=== PATIENT | female | born 1940 | race Caucasian/White ===

== ENCOUNTER 2017-03-24 08:52 | Observation (INO) ==
--- NOTE | 2017-03-24 09:15 | Emergency Department Note ---
Disposition Clinical Impression: SOB (shortness of breath) on exertion, Elevated brain natriuretic peptide (BNP ) level Atrial flutter Qualifiers: Atrial flutter type: typical Qualified Code(s): I48.3 - Typical atrial flutter Disposition: Admitted As Inpatient Condition: Fair Time of Disposition: 10:32 SOB HPI - General Chief Complaint: ED Shortness of Breath/Dyspnea Stated Complaint: LINDA Time Seen by Provider: 03/24/17 09:07 Source: patient Limitations: no limitations Nursing Notes Reviewed: Yes Vital Signs Reviewed: Yes - History of Present Illness 68-year-old female past medical history of hyperlipidemia, NM in mother at the age of 55% emergency department with shortness of breath or last 2 days. Patient states that she only has shortness of breath on exertion. States that she never had this before. Denies any history of congestive heart failure. Patient denies any hemoptysis, unilateral leg swelling, recent travel, DVTs. Patient denies any previous diagnosis arrhythmias. Patient does have a history of strokes in the family. - Related Data Home Medications Medication Instructions Recorded Confirmed Atenolol 100 mg PO DAILY 03/24/17 03/24/17 Buspirone HCl [Buspar] 15 mg PO BID 03/24/17 03/24/17 Hydrochlorothiazide [Microzide] 12.5 mg PO DAILY 03/24/17 03/24/17 Losartan Potassium [Cozaar] 100 mg PO DAILY 03/24/17 03/24/17 Multivit with Calcium,Iron,Min 1 tab PO DAILY 03/24/17 03/24/17 [One Daily Women's] [place]-3/Dha/Epa/Fish Oil [Fish Oil 1 cap PO DAILY 03/24/17 03/24/17 1,000 mg Softgel] Omeprazole [PriLOSEC] 40 mg PO DAILY 03/24/17 03/24/17 Pravastatin Sodium [Pravachol] 40 mg PO DAILY 03/24/17 03/24/17 Allergies Allergy/AdvReac Type Severity Reaction Status Date / Time acetaminophen AdvReac Headache Verified 03/24/17 09:53 pseudoephedrine AdvReac Palpitation Verified 03/24/17 09:53 s terfenadine AdvReac Headache Verified 03/24/17 09:53 All systems ED: reviewed and negative except as stated. Review of Systems: As Per HPI Constitutional: Denies: fever, weakness Cardiovascular: Denies: palpitations Respiratory: Reports: dyspnea. Denies: cough Gastrointestinal: Denies: abdominal pain, nausea, vomiting Past Medical History - Past Medical History Medical history: Reports: GERD, hypertension Surgical history: Reports: breast surgery, cholecystectomy Psychiatric history: Reports: anxiety - Social History Smoking Status: Never smoker Smokeless Tobacco Status: No Alcohol use: Reports: none Drug use: Reports: none Physical Exam General: Well Appearing 76-year-old female, in no acute distress Head: autraumatic, EOMI, no conjuncitval pallor, no scleral icterus, Mouth: oral mucous membranes moist Neck: neck soft, trachea midline Chest:: Equal chest wall rise Lungs: Normal lungs sounds bilaterally, no wheezes, no respiratory distress Heart: normal heart sounds, normal rate and irregular rhythm, Abdomen: soft, non-tender, no rigidity, no guarding, no rebdound tenderness Lower Extremities: no pedal edema, calves non-tender Integumentary: Skin warm, dry, and intact Neuro: Alert Psych: normal affect, normal mood - General Limitations: no limitations General appearance: alert, in no apparent distress Course Vital Signs Temperature 97.9 F 03/24/17 08:59 Pulse Rate 74 03/24/17 08:59 Respiratory Rate 18 03/24/17 08:59 Blood Pressure 125/82 03/24/17 08:59 O2 Sat by Pulse Oximetry 100 03/24/17 08:59 Temperature 98.1 F 03/24/17 14:55 Pulse Rate 81 03/24/17 14:55 Respiratory Rate 14 03/24/17 14:55 Blood Pressure 173/119 03/24/17 14:55 O2 Sat by Pulse Oximetry 93 03/24/17 14:55 Oxygen Delivery Oxygen Delivery Room Air Shortness of Breath/Dyspnea - MDM Narrative Medical decision making narrative: 68-year-old female presents to the emergency department with increasing shortness of breath over the last 3 days on exertion. Electrocardiogram revealed new atrial flutter with a 4-1 conduction ratio. Patient denies any previous history of having atrial flutter. Troponin was negative. Chest x-ray revealed cardiomegaly but not any overt signs of pleural effusions consistent with congestive heart failure. However, the patient had an elevated BNP of 603. I do not find any previous be in electrocardiograms that were obtained. I discussed the patient's diagnosis with her and she agreed to be admitted to the hospital. I spoke with the sister as well so that she would know that her sister is being admitted. I discussed the case with the supervisor extrusion who was okay with me initiating heparin as patient has an extensive family history of strokes and this patient has no disabilities and is very active and that very little risk of fall. I admitted the patient to the hospitalist and she agreed to accept. Patient was hematologically stable and not in any acute distress at time of admission to the hospital. Vital Signs Temperature 97.9 F 03/24/17 08:59 Pulse Rate 74 03/24/17 08:59 Respiratory Rate 18 03/24/17 08:59 Blood Pressure 125/82 03/24/17 08:59 O2 Sat by Pulse Oximetry 100 03/24/17 08:59 Temperature 97.9 F 03/24/17 08:59 Pulse Rate 83 03/24/17 10:24 Respiratory Rate 18 03/24/17 10:24 Blood Pressure 171/105 03/24/17 10:24 O2 Sat by Pulse Oximetry 98 03/24/17 10:24 Oxygen Delivery Oxygen Delivery Room Air Chest X-Ray 03/24/17 09:13 IMPRESSION: 1. No active pulmonary disease. 2. Cardiomegaly without overt failure. D/ / Fran Wilson MD / Fran Wilson MD Interpreting Provider: Fran Wilson MD - Lab Data Result diagrams: 03/24/17 09:21 03/24/17 09:21 Lab Results 03/24/17 03/24/17 03/24/17 Range/Units 09:21 09:21 09:21 WBC 6.9 (4.3-11.1) K/mcL RBC 4.52 (3.82-4.97) M/mcL Hgb 12.7 (11.5-15.4) g/dL Hct 39.0 (35.3-44.9) % MCV 86.3 (83.0-100.0) fL MCH 28.1 (28.0-33.3) pg MCHC 32.6 (31.6-35.5) g/dL RDW 14.5 (11.5-14.5) % Plt Count 198 (140-400) K/mcL MPV 9.8 (9.4-12.4) fL Immature Gran % 0.3 (0-4) % Seg Neutrophils % 59.0 % Lymphocytes % 25.1 % Monocytes % 12.6 % Eosinophils % 2.6 % Basophils % 0.4 % Neutrophils # 4.1 (1.6-8.9) K/mcL Lymphocytes # 1.7 (0.6-4.6) K/mcL Monocytes # 0.9 (0.0-1.3) K/mcL Eosinophils # 0.2 (0.0-0.6) K/mcL Basophils # 0.0 (0.0-0.2) K/mcL Immature Plt Fraction 3.1 (1.1-6.1) % PT (9.4-12.1) Seconds INR APTT (26.0-36.0) Seconds Sodium 139 (136-145) mEq/L Potassium 3.7 (3.5-4.5) mEq/L Chloride 104 (98-109) mEq/L Carbon Dioxide 27 (19-29) mEq/L BUN 12 (7-20) mg/dL Creatinine 0.89 (0.57-1.11) mg/dL Est GFR ( Amer) > 60 (> 60) Est GFR (Non-Af Amer) > 60 (> 60) BUN/Creatinine Ratio 13 (6-26) Glucose 96 (70-99) mg/dL Calculated Osmolality 288 (280-300) Calcium 9.4 (8.6-10.8) mg/dL Troponin I (0-0.03) ng/mL B-Natriuretic Peptide 603 H (0-100) pg/mL 03/24/17 03/24/17 Range/Units 09:21 09:21 WBC (4.3-11.1) K/mcL RBC (3.82-4.97) M/mcL Hgb (11.5-15.4) g/dL Hct (35.3-44.9) % MCV (83.0-100.0) fL MCH (28.0-33.3) pg MCHC (31.6-35.5) g/dL RDW (11.5-14.5) % Plt Count (140-400) K/mcL MPV (9.4-12.4) fL Immature Gran % (0-4) % Seg Neutrophils % % Lymphocytes % % Monocytes % % Eosinophils % % Basophils % % Neutrophils # (1.6-8.9) K/mcL Lymphocytes # (0.6-4.6) K/mcL Monocytes # (0.0-1.3) K/mcL Eosinophils # (0.0-0.6) K/mcL Basophils # (0.0-0.2) K/mcL Immature Plt Fraction (1.1-6.1) % PT 11.4 (9.4-12.1) Seconds INR 1.1 APTT 28.9 (26.0-36.0) Seconds Sodium (136-145) mEq/L Potassium (3.5-4.5) mEq/L Chloride (98-109) mEq/L Carbon Dioxide (19-29) mEq/L BUN (7-20) mg/dL Creatinine (0.57-1.11) mg/dL Est GFR ( Amer) (> 60) Est GFR (Non-Af Amer) (> 60) BUN/Creatinine Ratio (6-26) Glucose (70-99) mg/dL Calculated Osmolality (280-300) Calcium (8.6-10.8) mg/dL Troponin I 0.01 (0-0.03) ng/mL B-Natriuretic Peptide (0-100) pg/mL - Radiology Data Radiology results reviewed: Yes I reviewed the patient's radiology results. - EKG Data EKG attestation: Yes I reviewed and interpreted this EKG. EKG results narrative: 9:22 Ventricular rate 77 bpm, QRS duration 94 ms, QT 323 ms, QTC 355, left axis deviation. Atrial flutter with a 4-1 conduction ratio ventricular rate is 77 bpm. This was not evident on the previous electrocardiogram performed on 07/18/2012 Attestation Statement - Attestation Attestation: I, Kuldip Alcocer, examined this patient and my medical decision-making was reviewed with the MECHANICAL DRAWING TEACHER/PA/Advanced Practice Nurse/Resident Physician. I agree with the documented findings, disposition and treatment plan as described except to the extent set forth below. 76-year-old female presents with new-onset shortness of breath over the past 3 days. Patient has new atrial flutter with 4-1 conduction rate on EKG. Patient denies chest pain, feeling palpitations, fever, vomiting, diarrhea, new medications. Does not take anticoagulant medication. Patient will be admitted to the hospital for further care and evaluation of her dyspnea and new onset A. fib flutter.
[2017-03-24 09:38] LABS: Basophils % 0.4 %; Eosinophils # 0.2 K/mcL (0.0-0.6); Eosinophils % 2.6 %; Hemoglobin 12.7 g/dL (11.5-15.4); Immature Granulocytes % 0.3 % (0-4); Immature Platelets 3.1 % (1.1-6.1); Lymphocytes # 1.7 K/mcL (0.6-4.6); Lymphocytes % 25.1 %; Mean Corpuscular HGB Conc 32.6 g/dL (31.6-35.5); Mean Corpuscular Hemoglobin 28.1 pg (28.0-33.3); Mean Corpuscular Volume 86.3 fL (83.0-100.0); Mean Platelet Volume 9.8 fL (9.4-12.4); Monocytes # 0.9 K/mcL (0.0-1.3); Monocytes % 12.6 %; Neutrophils # 4.1 K/mcL (1.6-8.9); Platelet Count 198 K/mcL (140-400); Red Blood Count 4.52 M/mcL (3.82-4.97); Red Cell Distribution Width 14.5 % (11.5-14.5)
[2017-03-24] MEDS ORDERED: *HR* Heparin 5,000 UNIT/ML VIAL IVP ONE (09:43)
[2017-03-24] MEDS ORDERED: *HR* Heparin 5,000 UNIT/ML VIAL IVP PRN ×2 (09:43)
[2017-03-24 09:45] LABS: INR 1.1; Prothrombin Time 11.4 Seconds (9.4-12.1)
[2017-03-24] MEDS ORDERED: Heparin 25,000 UNIT/500 ML D5W 25,000 UNIT/500 ML MLS IVC SCH (09:45)
[2017-03-24 09:48] LABS: Activated Partial Thrombo Time 28.9 Seconds (26.0-36.0)
[2017-03-24 09:49] LABS: BUN/Creatinine Ratio 13 (6-26); Blood Urea Nitrogen 12 mg/dL (7-20); Calcium 9.4 mg/dL (8.6-10.8); Carbon Dioxide 27 mEq/L (19-29); Chloride 104 mEq/L (98-109); Glucose 96 mg/dL (70-99); Osmolality,Calculated 288 (280-300); Potassium 3.7 mEq/L (3.5-4.5); Sodium 139 mEq/L (136-145); eGFR For African Americans > 60 (> 60); eGFR For Non-African Americans > 60 (> 60)
[2017-03-24] MEDS ORDERED: Mag Hydrox/Al Hydrox/Simeth 30 ML UDC PO PRN (12:01)
[2017-03-24] MEDS ORDERED: Ondansetron 4 MG/2 ML VIAL IVP PRN (12:01)
[2017-03-24] MEDS ORDERED: MOM Conc 10 ML UD.LIQ PO PRN (12:01)
[2017-03-24] MEDS ORDERED: Naloxone 0.4 MG/ML INJ IVP PRN (12:01)
--- NOTE | 2017-03-24 13:44 | Cardiology Consult Note ---
<Calvin Mohamud R - Last Filed: 03/24/17 13:54> Date of Encounter: 03/24/17 Time of Encounter: 13:37 Assessment and Plan (1) Atrial flutter Current Visit: Yes Status: Acute Complaints of worsening dyspnea and palpitations over past 4-6 days. EKG on admission A-Flutter, rate 77. On home atenolol 100mg daily. Reports currently feeling better. Check echo to evaluate structure and function. K 3.7. Check mag and TSH. BNP 603--CXR cardiomegaly without overt failure. [id number] (Age, Female, HTN). Currently on heparin gtt for anticoagulation. Discussed Coumadin vs NOACs. Prefers NOAC, pending echo. Will torres check. Anticipate follow-up with Dr. Kuldip Cuba (EP) as outpt to discuss A-Flutter ablation. Continue to follow. Qualifiers: Atrial flutter type: unspecified Qualified Code(s): I48.92 - Unspecified atrial flutter Discussion w patient/family: The assessment and plan as outlined above was discussed with the patient and/or family members who expressed understanding and agreement. All questions were answered. Thank you for involving us in the care of your patient. Please call with any questions. I will discuss all the above with Dr. Almanzar and make changes as necessary. History of Present Illness Consult date: 03/24/17 Requesting physician: Hernesto Mcbride Consult reason: A-Flutter Chief complaint: dyspnea History of present illness: Ms. Davila is a 76 year old female with PMH of GERD and HTN that presented to ED with chief complaint of dyspnea for the past 4-6 days. She noticed it on exertion and also had palpitations. She was found to be in A-Flutter HR 77. She reports feeling better currently, but is resting in bed. Reports she had a LHC approximately 15 years ago without intervention. Past Med Surg Social Fam HX - Past Medical History Medical history: GERD, hypertension Psychiatric history: anxiety - Past Surgical History Surgical History: breast surgery, cholecystectomy - Social History Smoking Status: Never smoker Smokeless Tobacco Status: No Alcohol use: none Drug use: none - Family History Mother Living Status: Age at : 78 Cause of : [place] Hx Family Cardiac Disorders: Yes Hx Family Respiratory Disorders: No Hx Family Cancer: No Hx Family Endocrine Disorder: No Hx Family Neurologic Disorders: Yes Hx Family Medical Disorders: Yes Medications and Allergies Atenolol 100 mg PO DAILY 03/24/17 [History] Buspirone HCl [Buspar] 15 mg PO BID 03/24/17 [History] Hydrochlorothiazide [Microzide] 12.5 mg PO DAILY 03/24/17 [History] Losartan Potassium [Cozaar] 100 mg PO DAILY 03/24/17 [History] Multivit with Calcium,Iron,Min [One Daily Women's] 1 tab PO DAILY 03/24/17 [ History] [place]-3/Dha/Epa/Fish Oil [Fish Oil 1,000 mg Softgel] 1 cap PO DAILY 03/24/17 [ History] Omeprazole [PriLOSEC] 40 mg PO DAILY 03/24/17 [History] Pravastatin Sodium [Pravachol] 40 mg PO DAILY 03/24/17 [History] 3 Allergy/AdvReac Type Severity Reaction Status Date / Time acetaminophen AdvReac Headache Verified 03/24/17 09:53 pseudoephedrine AdvReac Palpitation Verified 03/24/17 09:53 s terfenadine AdvReac Headache Verified 03/24/17 09:53 All Systems Review: A 10-system review of systems was performed and is negative for pertinent findings except as documented above in the HPI. - Cardiovascular Cardiovascular: as per HPI, dyspnea at rest, dyspnea on exertion, palpitations - Respiratory Respiratory: dyspnea Physical Examination Vital Signs, Last 4 Hours Pulse Resp BP Pulse Ox 03/24/17 13:00 16 154/87 03/24/17 11:02 85 16 150/99 96 Vital Signs Temp Pulse Resp BP Pulse Ox 03/24/17 13:23 97.8 F 82 12 178/117 98 03/24/17 13:00 16 154/87 03/24/17 11:02 85 16 150/99 96 03/24/17 10:24 83 18 171/105 98 03/24/17 08:59 97.9 F 74 18 125/82 100 Intake and Output 03/23/17 03/24/17 03/24/17 23:59 07:59 15:59 Intake Total 0 / 0 Balance 0 / 0 Intake: Oral 0 / 0 Other: Meal Lunch Percent of Meal Consumed 0% Weight 73.5 kg Patient Weight 03/24/17 23:59 Weight 73.5 kg General: Conversant, No Apparent Distress HEENT: Atraumatic, Normocephaly, Mucus Membranes Moist Neck: No JVD, Normal carotid pulses Cardiac: Other (irregular) Lungs: Normal Breath Sounds, No Wheeze, Rales, Rhonchi Neuro: Alert and responsive, No focal deficits noted Abdomen: Soft, Non-Tender Skin: No rashes noted on visualized skin Musculoskeletal: No Chest Wall Tenderness Extremities: No Clubbing, No Cyanosis, No Edema, Normal Pulses Results 03/24/17 09:21 03/24/17 09:21 Short CBC 03/24/17 Range/Units 09:21 WBC 6.9 (4.3-11.1) K/mcL Hgb 12.7 (11.5-15.4) g/dL Hct 39.0 (35.3-44.9) % Plt Count 198 (140-400) K/mcL Neutrophils # 4.1 (1.6-8.9) K/mcL BMP 03/24/17 Range/Units 09:21 Sodium 139 (136-145) mEq/L Potassium 3.7 (3.5-4.5) mEq/L Chloride 104 (98-109) mEq/L Carbon Dioxide 27 (19-29) mEq/L BUN 12 (7-20) mg/dL Creatinine 0.89 (0.57-1.11) mg/dL Glucose 96 (70-99) mg/dL Calcium 9.4 (8.6-10.8) mg/dL Cardiac Enzymes 03/24/17 Range/Units 09:21 Troponin I 0.01 (0-0.03) ng/mL Impressions Chest X-Ray 03/24/17 09:13 IMPRESSION: 1. No active pulmonary disease. 2. Cardiomegaly without overt failure. D/ / Fran Wilson MD / Fran Wilson MD Interpreting Provider: Fran Wilson MD Active Medications Al Hydrox/Mg Hydrox/Simethicone (Maalox) 15 ml PO Q6HR PRN PRN Reason: Dyspepsia Stop: 09/23/17 12:02 Atenolol (Tenormin) 100 mg PO DAILY [facility] Stop: 09/24/17 09:01 Atorvastatin Calcium (Lipitor) 10 mg PO DAILY [facility] Stop: 09/24/17 09:01 Buspirone HCl (Buspar) 15 mg PO BID [facility] Stop: 09/23/17 21:01 Heparin Sodium (Porcine) (Heparin) 5,200 unit 70 unit/kg (5200 unit) IVP Q6HR PRN PRN Reason: SEE COMMENTS Stop: 09/23/17 09:44 Heparin Sodium (Porcine) (Heparin) 2,600 unit 35 unit/kg (2600 unit) IVP Q6H PRN PRN Reason: SEE COMMENTS Stop: 09/23/17 09:44 Heparin Sodium/Dextrose (Heparin 25,000 Unit/500 Ml D5w) 25,000 unit in 500 mls @ 20.626 mls/hr IVC .Q24H MARLI; 14 UNIT/KG/HR PRN Reason: Protocol Stop: 09/23/17 09:46 Last Admin: 03/24/17 10:09 Dose: 14 unit/kg/hr, 20.626 mls/hr Losartan Potassium (Cozaar) 100 mg PO DAILY [facility] Stop: 09/24/17 09:01 Magnesium Hydroxide (Milk Of Magnesia Conc) 10 ml PO DAILY PRN PRN Reason: Indigestion Stop: 09/23/17 12:02 Naloxone HCl (Narcan) 0.4 mg IVP Q2MIN PRN PRN Reason: Opioid Reversal Stop: 09/23/17 12:02 Omeprazole (Prilosec) 40 mg PO DAILY [facility] Stop: 09/24/17 09:01 Ondansetron HCl (Zofran) 4 mg IVP Q8HR PRN PRN Reason: Nausea And Vomiting Stop: 09/23/17 12:02 - EKG Interpretation EKG results cardiology: personally reviewed (A-Flutter rate 77) Consult Discharge Plan - Plan Referrals: Mary Alice Franco MD [Primary Care Provider] - <Paris Almanzar - Last Filed: 03/24/17 16:37> Date of Encounter: 03/24/17 - Attending Attestation I examined this patient and my medical decision-making was reviewed with the TUNNEL MAN. I agree with the documented findings, disposition and treatment plan. Ms. Davila presents with newly discovered atrial flutter, rate controlled. She is on atenolol at home. She denies recent chest pain and troponins are negative. We discussed the etiology and potential treatment plans. The patient was given the option of rate control, anticoagulation and outpatient follow-up with Dr. Kuldip Cuba versus an attempt at bahai of normal sinus rhythm by performing a BILL/DCCV. The R/B/A of the procedure were discussed with the patient. She expressed understanding. She would like to think about this before making a decision. CHADSVASC is 4 - we are performing a torres check for a novel agent. Echo is pending. Assessment and Plan Discussion w patient/family: The assessment and plan as outlined above was discussed with the patient and/or family members who expressed understanding and agreement. All questions were answered. Thank you for involving us in the care of your patient. Please call with any questions. History of Present Illness History of present illness: Ms. Davila is a 76 year old female All Systems Review: A 10-system review of systems was performed and is negative for pertinent findings except as documented above in the HPI. Physical Examination Vital Signs, Last 4 Hours Temp Pulse Resp BP Pulse Ox 03/24/17 14:55 98.1 F 81 14 173/119 93 03/24/17 13:23 97.8 F 82 12 178/117 98 03/24/17 13:00 16 154/87 Results 03/24/17 09:21 03/24/17 09:21
--- NOTE | 2017-03-24 14:13 | Internal Med History&Physical ---
Date of Encounter: 03/24/17 Time of Encounter: 10:45 Assessment and Plan (1) Atrial flutter Current visit: Yes Status: Acute New onset. Rate controlled as patient takes Atenolol daily. Cardiology eval. Echo. Check TSH and electrolytes. Anticoagulation. Qualifiers: Atrial flutter type: typical Qualified Code(s): I48.3 - Typical atrial flutter (2) CHF (congestive heart failure) Current visit: Yes Status: Suspected Pt has bilateral rales on exam. Neg CXR but elevated BNP. Takes diuretic at home. Echo ordered to eval LV function. Qualifiers: Congestive heart failure type: diastolic Congestive heart failure chronicity: acute on chronic Qualified Code(s): I50.33 - Acute on chronic diastolic (congestive) heart failure (3) Hypertension Current visit: Yes Status: Chronic Continue home meds. Qualifiers: Hypertension type: essential hypertension Qualified Code(s): I10 - Essential (primary) hypertension Internal Medicine - H&P: HPI Chief complaint: Short of breath Admitted From: Emergency Dept Plans for Post Hospital Care: Home History of present illness: Ms. Davila is a 76 year old female with hx of HTN presented to ED with complaints of shortness of breath. Symptoms intermittent over last few days but worse today. Was lifting boxes yesterday without issue. Noticed on her BP machine that it said irregular heartbeat. In ED she was found to be in atrial flutter and subsequently admitted. At this time she denies chest pain or dyspnea at rest. No fever or chills. No GI issues. No cough. No prior hx of irregular heartbeat. Denies prior cardiac history as well. Her biggest concern at this time is related to her cats at home. She is currently high risk due to new atrial flutter and potential for worsening cardiac status. Past Med Surg Social Fam HX - Past Medical History Medical history: GERD, hypertension Psychiatric history: anxiety - Past Surgical History Surgical History: breast surgery, cholecystectomy - Social History Smoking Status: Never smoker Smokeless Tobacco Status: No Alcohol use: none Drug use: none Current living situation: Home - Independent Activity Level: Independent ambulation - Family History Mother Living Status: Age at : 78 Cause of : [place] Hx Family Cardiac Disorders: Yes Hx Family Respiratory Disorders: No Hx Family Cancer: No Hx Family Endocrine Disorder: No Hx Family Neurologic Disorders: Yes Hx Family Medical Disorders: Yes - Additional Family History Additional family history: Reported all grandparents of CVAs. 2 sisters have DM. Internal Medicine - H&P: Meds Atenolol 100 mg PO DAILY 03/24/17 [History] Buspirone HCl [Buspar] 15 mg PO BID 03/24/17 [History] Hydrochlorothiazide [Microzide] 12.5 mg PO DAILY 03/24/17 [History] Losartan Potassium [Cozaar] 100 mg PO DAILY 03/24/17 [History] Multivit with Calcium,Iron,Min [One Daily Women's] 1 tab PO DAILY 03/24/17 [ History] [place]-3/Dha/Epa/Fish Oil [Fish Oil 1,000 mg Softgel] 1 cap PO DAILY 03/24/17 [ History] Omeprazole [PriLOSEC] 40 mg PO DAILY 03/24/17 [History] Pravastatin Sodium [Pravachol] 40 mg PO DAILY 03/24/17 [History] 3 Allergy/AdvReac Type Severity Reaction Status Date / Time acetaminophen AdvReac Headache Verified 03/24/17 09:53 pseudoephedrine AdvReac Palpitation Verified 03/24/17 09:53 s terfenadine AdvReac Headache Verified 03/24/17 09:53 All Systems PM: A 10-system review of systems was performed and is negative for pertinent findings except as documented above in the HPI. - Constitutional Constitutional: no chills, no fatigue, no fever(s), no malaise - EENT Eyes: no blurry vision, no dry eye, no pain Ears: no decreased hearing Nose, mouth and throat: no dry mouth, no mouth pain, no sinus pain - Cardiovascular Cardiovascular ROS IM: dyspnea, dyspnea on exertion, no chest pain, no diaphoresis, no orthopnea, no palpitations, no paroxysmal nocturnal dyspnea - Respiratory Respiratory: no cough, no hemoptysis, no dyspnea on exertion, no wheezing - Gastrointestinal Gastrointestinal: no constipation, no heartburn, no melena, no nausea - Genitourinary Genitourinary: no difficulty urinating, no nocturia, no urinary urgency - Musculoskeletal Musculoskeletal ROS IM: arthralgias, no muscle cramps, no myalgias, no numbness - Integumentary Integumentary IM: no erythema, no rash - Neurological Neurological ROS: no confusion, no dizziness, no memory loss - Endocrine Endocrine IM: no cold intolerance, no heat intolerance - Hematologic/Lymphatic Hematologic/Lymphatic: no easy bleeding - Allergic/Immunologic Allergic/Immunologic: no throat swelling, no wheezing - Constitutional Vitals: Temp Pulse Resp BP Pulse Ox 97.8 F 82 12 178/117 98 03/24/17 13:23 03/24/17 13:23 03/24/17 13:23 03/24/17 13:23 03/24/17 13:23 General appearance: Present: A&O X 3, answers questions appropriately - Head Head exam: Present: atraumatic, normocephalic - Eye Eye exam: Present: EOMI, PERRL, conjuntiva pink - ENT ENT exam: Present: mucous membranes moist - Neck Neck exam general surgery: Present: full ROM. Absent: lymphadenopathy, thyromegaly - Respiratory Respiratory exam: Present: rales (Both bases.) - Cardiovascular Cardiovascular exam: Present: irregular rhythm. Absent: tachycardia - GI/Abdominal GI/Abdominal exam: Present: normal bowel sounds, soft. Absent: mass, tenderness - Extremities Exam Extremities exam: Present: pedal edema, warm. Absent: tenderness - Neurological Exam Neurological exam: Present: alert, oriented X3, no focal deficits - Psychiatric Psychiatric exam: Present: normal affect, normal mood - Skin Skin exam: Present: dry, warm. Absent: rash Internal Med - H&P Results - Labs CBC & Chem 7: 03/24/17 09:21 03/24/17 09:21
--- NOTE | 2017-03-24 15:49 | Electrocardiograph Report ---
[address] [address] Test Date: 2017-03-24 Pat Name: Sarah Davila Department: 102 Room: 2NE33 Gender: F Checkroom Chief: Jeremias : 1940 Requested By: Pablo Cantu Order Number: [id number] Reading MD: Roby Ching MD Measurements Intervals [place] Rate: 77 P: GA: 0 QRS: -34 QRSD: 94 T: 121 QT: 323 QTc: 355 Interpretive Statements ATRIAL FIBRILLATION INDETERMINATE AXIS Poor R wave progression Electronically Signed On 03-24-2017 15:48:09 EST by Roby Ching MD
[2017-03-24 16:47] LABS: Activated Partial Thrombo Time 152.9 Seconds (26.0-36.0)
[2017-03-24 16:54] LABS: Heparin anti-factor XA UFH 0.77 IU/mL (0.30-0.70)
[2017-03-25 00:50] LABS: BUN/Creatinine Ratio 20 (6-26); Blood Urea Nitrogen 17 mg/dL (7-20); Calcium 9.1 mg/dL (8.6-10.8); Carbon Dioxide 25 mEq/L (19-29); Chloride 102 mEq/L (98-109); Chol/HDL Ratio 3.4 (0-4.9); Cholesterol 141 mg/dL (< 200); Glucose 121 mg/dL (70-99); HDL Cholesterol 41 mg/dL (40-59); LDL Cholesterol,Calculated 79 mg/dL (0-99); Magnesium 1.6 mg/dL (1.6-2.6); Osmolality,Calculated 285 (280-300); Potassium 3.8 mEq/L (3.5-4.5); Sodium 136 mEq/L (136-145); Triglycerides 107 mg/dL (< 150); eGFR For African Americans > 60 (> 60); eGFR For Non-African Americans > 60 (> 60)
[2017-03-25 00:51] LABS: Basophils % 0.3 %; Eosinophils # 0.2 K/mcL (0.0-0.6); Eosinophils % 2.6 %; Hematocrit 35.4 % (35.3-44.9); Hemoglobin 11.8 g/dL (11.5-15.4); Immature Granulocytes % 0.2 % (0-4); Lymphocytes # 2.2 K/mcL (0.6-4.6); Lymphocytes % 38.5 %; Mean Corpuscular HGB Conc 33.3 g/dL (31.6-35.5); Mean Corpuscular Hemoglobin 28.1 pg (28.0-33.3); Mean Corpuscular Volume 84.3 fL (83.0-100.0); Mean Platelet Volume 10.1 fL (9.4-12.4); Monocytes # 0.9 K/mcL (0.0-1.3); Monocytes % 15.7 %; Neutrophils # 2.4 K/mcL (1.6-8.9); Platelet Count 163 K/mcL (140-400); Red Cell Distribution Width 14.5 % (11.5-14.5); Segmented Neutrophils % 42.7 %
[2017-03-25 07:26] VITALS: BP 124/96
--- NOTE | 2017-03-25 08:42 | Discharge Summary ---
<Perico Mason - Last Filed: 03/25/17 09:11> Date of Encounter: 03/25/17 Time of Encounter: 08:38 - Discharge Diagnosis (1) Atrial flutter Priority: Primary Status: Acute Comments: Complaints of worsening dyspnea and palpitations over past 4-6 days. EKG on admission A-Flutter, rate 77. On home atenolol 100mg daily. Reports currently feeling better. Echo reveals normal structure and function. K 3.7. Normal mag and TSH. BNP 603--CXR cardiomegaly without overt failure. [id number] 4 (Age, Female, HTN). Currently on heparin gtt for anticoagulation. Discussed Coumadin vs NOACs. Prefers NOAC, Cardiology wrote Rx for Xarleto. Anticipate follow-up with Dr. Kuldip Cuba (EP) as outpt to discuss A-Flutter ablation. Qualifiers: Atrial flutter type: typical Qualified Code(s): I48.3 - Typical atrial flutter (2) Hypertension Priority: Secondary Status: Chronic Comments: Continue home meds Qualifiers: Hypertension type: essential hypertension Qualified Code(s): I10 - Essential (primary) hypertension (3) HLD (hyperlipidemia) Priority: Secondary Status: Acute Comments: Continue statin Qualifiers: Hyperlipidemia type: unspecified Qualified Code(s): E78.5 - Hyperlipidemia , unspecified (4) CHF (congestive heart failure) Priority: Secondary Status: Chronic Comments: Echo reveals normal structure and function. BNP 603--CXR cardiomegaly without overt failure. Qualifiers: Congestive heart failure type: diastolic Congestive heart failure chronicity: chronic Qualified Code(s): I50.32 - Chronic diastolic (congestive ) heart failure (5) Anxiety disorder Priority: Secondary Status: Chronic Comments: Continue home meds Qualifiers: Anxiety disorder type: unspecified anxiety disorder Qualified Code(s): F41.9 - Anxiety disorder, unspecified (6) DVT prophylaxis Priority: Primary Status: Acute Comments: Start Xarelto - Discharge Medications Prescriptions: Rivaroxaban [Xarelto] 15 mg PO 1700 #90 tablet Home Medications: Atenolol 100 mg PO DAILY 03/24/17 [History] Buspirone HCl [Buspar] 15 mg PO BID 03/24/17 [History] Hydrochlorothiazide [Microzide] 12.5 mg PO DAILY 03/24/17 [History] Losartan Potassium [Cozaar] 100 mg PO DAILY 03/24/17 [History] Multivit with Calcium,Iron,Min [One Daily Women's] 1 tab PO DAILY 03/24/17 [ History] [place]-3/Dha/Epa/Fish Oil [Fish Oil 1,000 mg Softgel] 1 cap PO DAILY 03/24/17 [ History] Omeprazole [PriLOSEC] 40 mg PO DAILY 03/24/17 [History] Pravastatin Sodium [Pravachol] 40 mg PO DAILY 03/24/17 [History] Atenolol [Tenormin] 100 mg PO DAILY tablet 03/25/17 [Rx] Losartan [Cozaar] 100 mg PO DAILY #0 tablet 03/25/17 [Rx] Rivaroxaban [Xarelto] 15 mg PO 1700 #90 tablet 03/25/17 [Rx] Allergies/Adverse Reactions: 3 Allergy/AdvReac Type Severity Reaction Status Date / Time acetaminophen AdvReac Headache Verified 03/24/17 09:53 pseudoephedrine AdvReac Palpitation Verified 03/24/17 09:53 s terfenadine AdvReac Headache Verified 03/24/17 09:53 Procedures/tests Complete & Pending: Procedures Performed prior 72 hours Category Date Time Status EV echocardiogram Routine Y 03/24/17 13:57 Completed Date of admission: 03/24/17 10:36 Primary care physician: Mary Alice Franco Consults: Cardiology Discharging clinician: Perico Mason Anticipated date of discharge: 03/25/17 - Patient Status Disposition: Home, Self-Care Condition: Good Functional capacity at discharge: independent ambulation Overall status at discharge: patient is back to baseline - Discharge Instructions Instructions: Rivaroxaban (By mouth), Atrial Flutter (DC) Follow Up With: Kuldip Cuba MD [Partnered Physician] - (followup in 1-2 weeks for discussion of outpatient ablation. They will call you with appt date & time.) Mary Alice Franco MD [Primary Care Provider] - 04/02/17 10:15 am (Appt is w/ Dr. Ramos because Dr. Franco is pre-occupied this day) Additional Instructions: Start taking Xarelto 15 mg daily for 21 days, then switch to Xarelto 20mg daily indefinitely Continue Aspirin and Lipitor Follwo up with cardiology with Dr. Kuldip Cuba (EP) in 1 -2 weeks to discuss A- Flutter ablation and continued Xarelto - Diet and Activity Activity: increase activity as tolerated, resume usual activities as tolerated Diet: other (Cardiac) Hospital course: Ms. Davila is a 76 year old female with PMH of GERD and HTN that presented to ED with chief complaint of dyspnea for the past 4-6 days. She noticed it on exertion and also had palpitations. She was found to be in A-Flutter HR 77. She reports feeling better currently, but is resting in bed. Reports she had a LHC approximately 15 years ago without intervention. EKG on admission A-Flutter, rate 77. She is on home atenolol 100mg daily and reported feeling better during hospital course. Echo revealed normal structure and function. K 3.7. Normal mag and TSH. BNP 603--CXR cardiomegaly without overt failure. Her [id number] 4 (Age , Female, HTN) and was heparin gtt for anticoagulation. Discussed Coumadin vs NOACs. Patient prefers NOAC, Cardiology wrote Rx for Xarleto. Anticipate follow- up with Dr. Kuldip Cuba (EP) as outpt to discuss A-Flutter ablation. Patient understood, agreed to and repeated the plan. - Time Spent with Patient Total time spent providing and/or coordinating discharge services: - Constitutional Vitals: Temp Pulse Resp BP Pulse Ox 97.7 F 77 18 124/96 98 03/25/17 07:24 03/25/17 07:24 03/25/17 07:24 03/25/17 07:24 03/25/17 07:24 General appearance: Present: cooperative, A&O X 3, pleasant, no acute distress, answers questions appropriately - Head Head exam: Present: atraumatic, normocephalic - Eye Eye exam: Present: PERRL, conjuntiva pink, sclera anicteric Pupils: Present: PERRL - ENT ENT exam: Present: mucous membranes moist, normal oropharynx - Neck Neck exam general surgery: Present: supple, trachea midline. Absent: lymphadenopathy - Respiratory Respiratory exam: Present: CTAB. Absent: accessory muscle use, rales, rhonchi, wheezes - Cardiovascular Cardiovascular exam: Present: irregular rhythm, +S1, +S2. Absent: diastolic murmur, gallop, JVD, rubs, systolic murmur - GI/Abdominal GI/Abdominal exam: Present: normal bowel sounds, soft, no peritoneal signs. Absent: distended, tenderness - Extremities Exam Extremities exam: Present: warm, radial pulses palpable and symmetrical. Absent : calf tenderness, cyanotic, pedal edema - Back Exam Back exam: Present: normal inspection. Absent: paraspinal tenderness, tenderness - Neurological Exam Neurological exam: Present: CN II-XII intact, oriented X3, no focal deficits. Absent: pronater drift, facial droop, speech deficit - Psychiatric Psychiatric exam: Present: anxious, normal affect - Skin Skin exam: Present: dry, intact <Wade Tony H - Last Filed: 03/25/17 15:06> Date of Encounter: 03/25/17 Procedures/tests Complete & Pending: Procedures Performed prior 72 hours Category Date Time Status EV echocardiogram Routine Y 03/24/17 13:57 Completed Date of admission: 03/24/17 10:36 Primary care physician: Mary Alice Genao [facility] course: Ms. Davila is a 76 year old female - Time Spent with Patient Total time spent providing and/or coordinating discharge services: - Constitutional Vitals: Temp Pulse Resp BP Pulse Ox 97.7 F 77 18 124/96 98 03/25/17 07:24 03/25/17 07:24 03/25/17 07:24 03/25/17 07:24 03/25/17 07:24 - Attending Attestation time spent on this discharge : 40 min I examined this patient and my medical decision-making was reviewed with the Resident Physician. I agree with the documented findings, disposition and treatment plan as described except to the extent set forth below.
--- NOTE | 2017-03-25 10:45 | Cardiology Progress Note ---
Date of Encounter: 03/25/17 Time of Encounter: 10:42 Assessment and Plan (1) Atrial flutter Current Visit: Yes Status: Acute Complaints of worsening dyspnea and palpitations over past 4-6 days. EKG on admission A-Flutter, rate 77. On home atenolol 100mg daily. Reports currently feeling better. Discussed BILL/DCCV while inpt. She prefers rate control strategy and anticoagulation for now. 24 hr tele AVG HR 78. Echo EF 60-65%, mild concentric LVH, mild MR and TR. [id number] 4 (Age, Female, HTN). Currently on heparin gtt for anticoagulation. Discussed Coumadin vs NOACs. Prefers NOAC, xarelto $20 for 90 day supply. Discussed with pharmacy, given her advanced age and borderline renal function, they recommend decreased dose of 15mg daily of Xarelto. Will coordinate follow-up with Dr. Kuldip Cuba (EP) as outpt to discuss A- Flutter ablation. Cardiology signing off. Reconsult PRN. Qualifiers: Atrial flutter type: typical Qualified Code(s): I48.3 - Typical atrial flutter Discussion w patient/family: The assessment and plan as outlined above was discussed with the patient and/or family members who expressed understanding and agreement. All questions were answered. Thank you for involving us in the care of your patient. Please call with any questions. I will discuss all the above with Dr. Almanzar and make changes as necessary. Subjective Principal diagnosis: A-Flutter Interval history: 24 hr tele AVG HR 78, A-Flutter. Pt denies any acute complaints this AM--denies chest pain or dyspnea. Only complaint is feeling tired and not sleeping well. Echo resulted--EF 60-65%, mild concentric LVH, mild MR and TR. Xarelto torres check $20 for 3 month supply. Objective Vital Signs, Last 4 Hours Temp Pulse Resp BP Pulse Ox 03/25/17 07:24 97.7 F 77 18 124/96 98 Vital Signs Temp Pulse Resp BP Pulse Ox 03/25/17 07:24 97.7 F 77 18 124/96 98 03/25/17 04:45 97.3 F L 99 18 148/98 97 03/25/17 00:36 97.7 F 73 16 137/79 95 03/24/17 20:48 98.4 F 83 16 155/93 96 03/24/17 14:55 98.1 F 81 14 173/119 93 03/24/17 13:23 97.8 F 82 12 178/117 98 03/24/17 13:00 16 154/87 03/24/17 11:02 85 16 150/99 96 Intake and Output 03/24/17 03/25/17 03/25/17 23:59 07:59 15:59 Intake Total 416 / 416 Balance 416 / 416 Intake: IV Fluids 176 / 176 Heparin 25,000 UNIT/500 ML D5W 176 / 176 25,000 unit In 500 ml @ 14 UNIT /KG/HR 20.626 mls/hr IVC .Q24H MARLI Rx#:[id number] Oral 240 / 240 0 / 0 Other: Meal Dinner Percent of Meal Consumed 100% # Voids 0 4 Weight 72.5 kg Patient Weight 03/25/17 23:59 Weight 72.5 kg General: Conversant, No Apparent Distress HEENT: Atraumatic, Normocephaly, Mucus Membranes Moist Neck: No JVD, Normal carotid pulses Cardiac: Other (irregular) Lungs: Normal Breath Sounds, No Wheeze, Rales, Rhonchi Neuro: Alert and responsive, No focal deficits noted Abdomen: Soft, Non-Tender Skin: No rashes noted on visualized skin Musculoskeletal: No Chest Wall Tenderness Extremities: No Clubbing, No Cyanosis, No Edema, Normal Pulses Results 03/25/17 00:26 03/25/17 00:26 Lab Results 03/24/17 03/24/17 03/24/17 15:45 15:45 22:36 WBC Hgb Hct Plt Count APTT 152.9 H* D Sodium Potassium Chloride Carbon Dioxide BUN Creatinine Glucose Calcium Magnesium Troponin I 0.00 0.02 TSH 03/25/17 03/25/17 03/25/17 00:26 00:26 00:26 WBC 5.7 Hgb 11.8 Hct 35.4 Plt Count 163 APTT Sodium 136 Potassium 3.8 Chloride 102 Carbon Dioxide 25 BUN 17 Creatinine 0.83 Glucose 121 H Calcium 9.1 Magnesium 1.6 Troponin I 0.01 TSH 03/25/17 03/25/17 03/25/17 00:26 00:26 06:44 WBC Hgb Hct Plt Count APTT 29.5 D 106.3 H D Sodium Potassium Chloride Carbon Dioxide BUN Creatinine Glucose Calcium Magnesium Troponin I TSH 2.518 Short CBC 03/25/17 Range/Units 00:26 WBC 5.7 (4.3-11.1) K/mcL Hgb 11.8 (11.5-15.4) g/dL Hct 35.4 (35.3-44.9) % Plt Count 163 (140-400) K/mcL Neutrophils # 2.4 (1.6-8.9) K/mcL BMP 03/25/17 Range/Units 00:26 Sodium 136 (136-145) mEq/L Potassium 3.8 (3.5-4.5) mEq/L Chloride 102 (98-109) mEq/L Carbon Dioxide 25 (19-29) mEq/L BUN 17 (7-20) mg/dL Creatinine 0.83 (0.57-1.11) mg/dL Glucose 121 H (70-99) mg/dL Calcium 9.1 (8.6-10.8) mg/dL Cardiac Enzymes 03/25/17 03/24/17 03/24/17 Range/Units 00:26 22:36 15:45 Troponin I 0.01 0.02 0.00 (0-0.03) ng/mL Impressions Echocardiogram 03/24/17 13:57 Impressions: LVEF 60-65%. Normal LV chamber size and function. Mild concentric left ventricular hypertrophy. Indeterminate diastolic function. Normal right ventricular structure and function. Mild mitral regurgitation. Mild tricuspid regurgitation. No pulmonary hypertension. Left Ventricular Wall Motion: Rest Echo Findings All wall segments showed normal motion. Findings: Study Quality * Technically adequate exam. ECG Findings * Atrial fibrillation. Left Ventricle * LVEF 60-65%. * Normal LV chamber size and function. * Mild concentric left ventricular hypertrophy. * Indeterminate diastolic function. Right Ventricle * Normal right ventricular structure and function. Left Atrium * Moderately dilated left atrium. Right Atrium * Normal right atrial size. Interatrial Septum * Interatrial septum not well evaluated. Aortic Valve * Trileaflet aortic valve. * Mildly sclerotic aortic valve leaflets. * No aortic regurgitation. * No aortic stenosis. Mitral Valve * Mild mitral annular calcification * Mildly thickened mitral valve leaflets. * No mitral stenosis. * Mild mitral regurgitation. Tricuspid Valve * Normal tricuspid valve structure. * Mild tricuspid regurgitation. * No pulmonary hypertension. Pulmonic Valve * Normal pulmonic valve structure and function. * Trace pulmonic regurgitation. Aorta * Normally sized aortic root. Pericardium * The pericardium appears normal. IVC * Normal IVC dimensions and inspiratory collapse. Pulmonary Artery * Normal visualized portions of the main pulmonary artery. Active Medications Al Hydrox/Mg Hydrox/Simethicone (Maalox) 15 ml PO Q6HR PRN PRN Reason: Dyspepsia Stop: 09/23/17 12:02 Atenolol (Tenormin) 100 mg PO DAILY [facility] Stop: 09/23/17 20:16 Last Admin: 03/24/17 20:30 Dose: 100 mg Atorvastatin Calcium (Lipitor) 10 mg PO DAILY [facility] Stop: 09/24/17 09:01 Buspirone HCl (Buspar) 15 mg PO BID [facility] Stop: 09/23/17 21:01 Last Admin: 03/24/17 20:03 Dose: 15 mg Heparin Sodium (Porcine) (Heparin) 5,200 unit 70 unit/kg (5200 unit) IVP Q6HR PRN PRN Reason: SEE COMMENTS Stop: 09/23/17 09:44 Last Admin: 03/25/17 01:14 Dose: 5,200 unit Heparin Sodium (Porcine) (Heparin) 2,600 unit 35 unit/kg (2600 unit) IVP Q6H PRN PRN Reason: SEE COMMENTS Stop: 09/23/17 09:44 Heparin Sodium/Dextrose (Heparin 25,000 Unit/500 Ml D5w) 25,000 unit in 500 mls @ 20.626 mls/hr IVC .Q24H MARLI; 14 UNIT/KG/HR PRN Reason: Protocol Stop: 09/23/17 09:46 Last Titration: 03/25/17 07:22 Dose: 8.55 unit/kg/hr, 12.6 mls/hr Losartan Potassium (Cozaar) 100 mg PO DAILY MARLI PRN Reason: Protocol Stop: 09/23/17 20:01 Last Admin: 03/24/17 20:30 Dose: 100 mg Magnesium Hydroxide (Milk Of Magnesia Conc) 10 ml PO DAILY PRN PRN Reason: Indigestion Stop: 09/23/17 12:02 Naloxone HCl (Narcan) 0.4 mg IVP Q2MIN PRN PRN Reason: Opioid Reversal Stop: 09/23/17 12:02 Omeprazole (Prilosec) 40 mg PO DAILY [facility] Stop: 09/24/17 09:01 Ondansetron HCl (Zofran) 4 mg IVP Q8HR PRN PRN Reason: Nausea And Vomiting Stop: 09/23/17 12:02 Rivaroxaban (Xarelto) 15 mg PO 1700 MARLI Stop: 09/24/17 17:01 - Imaging and Cardiology Echo: report reviewed - EKG Interpretation EKG results cardiology: other (24 hr tele AVG HR 78, A-Flutter) Consult Discharge Plan - Plan Additional Instructions: Start taking Xarelto 15 mg daily for 21 days, then switch to Xarelto 20mg daily indefinitely Continue Aspirin and Lipitor Follwo up with cardiology with Dr. Kuldip Cuba (EP) in 1 -2 weeks to discuss A- Flutter ablation and continued Xarelto Referrals: Mary Alice Franco MD [Primary Care Provider] - Prescriptions: Rivaroxaban [Xarelto] 15 mg PO 1700 #90 tablet
[2017-03-25] MEDS ORDERED: *HR* Rivaroxaban 15 MG TABLET PO SCH (17:00)
== END 2017-03-25 12:17 | disposition home or self-care (01) ==
LOC: 3BNU 08:52 → EMEROO 08:52 → SUATTDRO 10:36 → 2NENU 11:32
PROVIDERS: ADMIT Registered Nurse; ATTEND Internal Medicine